=== PATIENT | female | born 1935 | race Caucasian/White ===

== ENCOUNTER 2017-03-13 12:29 | Day surgery (SDC) | payer BC ==
[2017-02-17 13:42] VITALS: BMI 19.0
[~2017-03-13] VITALS: Ht 157.5 cm; Wt 47.7 kg
[~2017-03-13 12:29] MED LIST: ATROPINE SULFATE 0.1 MG/ML 5ML SYR IV PRN; CALC-51 PO; FENTANYL CITRATE INJ 50 MCG/1 ML 2 ML VIAL IV PRN; ONDANSETRON INJ 2 MG/ML 2 ML VIAL IV PRN; PROCAINAMIDE HCL INJ 500 MG/ML 2 ML VIAL IV ONE; PROPOFOL IV EMULSION 10 MG/ML 100 ML VIAL IV ONE; VITA1TAB4 PO
[2017-03-13 12:53] VITALS: BP 161/79; PULSE 83; TEMP 36.6; O2SAT 98; Ht 157.5 cm; Wt 47.7 kg
[2017-03-13 13:11] LABS: HEMATOCRIT 40.6 % (37-47); MEAN CELL VOLUME 94.2 fL (80-100); MEAN CORPUSCULAR HEMOGLOBIN 31.3 pg (25-34); MEAN PLATELET VOLUME 9.5 fL (7.4-10.4); PLATELET COUNT 268 K/uL (130-400); RED BLOOD COUNT 4.31 M/uL (4.2-5.4); WHITE BLOOD COUNT 6.52 K/uL (4.8-10.8)
[2017-03-13] MEDS ORDERED: MIDAZOLAM HCL 1 MG/ML 2ML VIAL ONE (13:33)
[2017-03-13] MEDS ORDERED: PROPOFOL IV EMULSION 10 MG/ML 20 ML VIAL IV ONE (13:33)
[2017-03-13] MEDS ORDERED: LIDOCAINE HCL 2% 2 ML VIAL (20MG/ML) ONE (13:33)
[2017-03-13] MEDS ORDERED: KETAMINE HCL INJ 50 MG/ML 10 ML VIAL ONE (13:33)
[2017-03-13 13:37] LABS: MEAN CORPUSCULAR HGB CONC 33.3 g/dl (32-36)
[2017-03-13] MEDS ORDERED: NURSING VERBAL MED ORDER ONE (13:45)
[2017-03-13] MEDS ORDERED: CIPROFLOXACIN / D5W 400 MG IV SCH (14:00)
--- NOTE | 2017-03-13 14:06 | Progress Note ---
Progress Note Date of Service Mar 13, 2017. Progress Note [facility] [address] [place] [address] Endoscopy History & Physical Patient Name: Christin Ching Unit Number: [id number] Date of : 1935 Patient Status: Registered Surgical Day Care Attending Doctor: Ramakrishna Vizcaino MD History & Physical - GI History & Physical Date of Service: Mar 13, 2017. Chief Complaint: Referring Physician: History of Present Illness Is a 81-year-old female referred from [facility], for an incidental finding of a pancreatic neck cystic lesion measuring 24 x 19 mm in size. No alarm symptoms, no history of pancreatitis.No weight loss Past Surgical History Hx Cardiac Surgery: No Hx Abdominal Surgery: No Hx Post-Op Nausea and Vomiting: No Hx Cancer Surgery: Yes (L ENUCLEATION) Hx Thoracic Surgery: No Hx Orthopedic: No Hx Urinary Tract Surgery: No Social History Smoking Status: Never Smoker Hx Substance Use: No Hx Alcohol Use: Yes (OCC BEER WITH PIZZA) Allergies Coded Allergies: No Known Allergies (Unverified , 03/13/17) Current Medications Reported Home Medications Medications Dose Route/Sig Max Daily Dose Days Date Category [Calcium] 250 Units PO QAM 02/17/17 Reported Vitamin E 400 Unit Tab 400 Units PO QAM 02/17/17 Reported Vital Signs Weight (Kilograms): 47.73 Height (Feet): 5 Height (Inches): 2 Physical Exam General Appearance: WD/WN, no apparent distress Respiratory/Chest: Auscultation: breath sounds normal, CTA except as noted Cardiovascular: Apical Impulse: not displaced Heart Auscultation: RRR, normal S1 Assessment and Plan 81-year-old presenting for pancreatic cystic lesion for an endoscopic ultrasound.
--- NOTE | 2017-03-13 15:10 | GI REPORT ---
Procedure Date: 03/13/2017 2:32 PM Procedure: Upper GI endoscopy Indications: Heartburn Medicines: General Anesthesia Complications: No immediate complications. Estimated blood loss: None. Estimated Blood Loss: Estimated blood loss: none. Procedure: Pre-Anesthesia Assessment: - Pre-Anesthesia Assessment: - Prior to the procedure, a History and Physical was performed, and patient medications, allergies and sensitivities were reviewed. The patient's tolerance of previous anesthesia was reviewed. Please see [employer] for complete details. - The risks and benefits of the procedure and the sedation options and risks were discussed with the patient. All questions were answered and informed consent was obtained. - Patient identification and proposed procedure were verified prior to the procedure by the physician and the nurse. The procedure was verified in the pre-procedure area in the procedure room. After obtaining informed consent, the endoscope was passed carefully and meticuously under direct vision and only advanced when the lumen was clearly identified, C02 insuflation was utilized throughout the entirity of the procedure. Throughout the procedure, the patient's blood pressure, pulse, and oxygen saturations were monitored continuously. After obtaining informed consent, the endoscope was passed under direct vision. Throughout the procedure, the patient's blood pressure, pulse, and oxygen saturations were monitored continuously. The scope was introduced through the mouth, and advanced to the second part of duodenum. The upper GI endoscopy was accomplished without difficulty. The patient tolerated the procedure well. Findings: A hiatus hernia was present. The entire examined stomach was normal. The examined duodenum was normal. Impression: - Hiatus hernia. - Normal stomach. - Normal examined duodenum. - No specimens collected. Recommendation: - Discharge patient to home (with escort). - Perform an upper endoscopic ultrasound (UEUS) today. Ramakrishna Vizcaino MD 03/13/2017 3:10:05 PM This report has been signed electronically. Note Initiated On: 03/13/2017 2:32 PM I attest to the content of the Intraoperative Record and orders documented therein, exceptions below
--- NOTE | 2017-03-13 15:17 | GI REPORT ---
Procedure Date: 03/13/2017 2:41 PM Procedure: Upper EUS Indications: Pancreatic cyst on CT scan Medicines: General Anesthesia, Cipro 400 mg IV x 1 intraprocedure Complications: No immediate complications. Estimated blood loss: None. Estimated Blood Loss: Estimated blood loss: none. Procedure: Pre-Anesthesia Assessment: - Pre-Anesthesia Assessment: - Prior to the procedure, a History and Physical was performed, and patient medications, allergies and sensitivities were reviewed. The patient's tolerance of previous anesthesia was reviewed. Please see [employer] for complete details. - The risks and benefits of the procedure and the sedation options and risks were discussed with the patient. All questions were answered and informed consent was obtained. - Patient identification and proposed procedure were verified prior to the procedure by the physician and the nurse. The procedure was verified in the pre-procedure area in the procedure room. After obtaining informed consent, the endoscope was passed carefully and meticuously under direct vision and only advanced when the lumen was clearly identified, C02 insuflation was utilized throughout the entirity of the procedure. Throughout the procedure, the patient's blood pressure, pulse, and oxygen saturations were monitored continuously. After obtaining informed consent, the endoscope was passed under direct vision. Throughout the procedure, the patient's blood pressure, pulse, and oxygen saturations were monitored continuously. The scope was introduced through the mouth, and advanced to the second part of duodenum. The upper EUS was accomplished without difficulty. The patient tolerated the procedure well. Findings: Endosonographic Finding : An anechoic lesion suggestive of a cyst was identified in the pancreatic neck. It is not in obvious communication with the pancreatic duct. The lesion measured 31 mm by 12 mm in maximal cross-sectional diameter. There was a single compartment thinly septated. The outer wall of the lesion was not seen. There was no associated mass. There was no internal debris within the fluid-filled cavity. Diagnostic needle aspiration for fluid was performed. Color Doppler imaging was utilized prior to needle puncture to confirm a lack of significant vascular structures within the needle path. One pass was made with the 22 gauge needle using a transgastric approach. A stylet was used. The amount of fluid collected was 5 mL. The fluid was clear and viscous. Sample(s) were sent for amylase concentration, cytology and CEA. Endosonographic imaging in the entire pancreas showed no mass, no pancreas divisum, no pancreatic duct changes and no parenchymal abnormalities. There was no sign of significant endosonographic abnormality in the common bile duct. The maximum diameter of the duct was 5 mm. An unremarkable gallbladder was identified. There was no sign of significant endosonographic abnormality in the left lobe of the liver. Impression: - A cystic lesion was seen in the pancreatic neck. Fine needle aspiration for fluid performed. - There was no sign of significant pathology in the common bile duct. - There was no evidence of significant pathology in the left lobe of the liver. Recommendation: - Discharge patient to home (with escort). - Await cytology and fluid analysis - If cyst is mucinous, then repeat MRI in 6-[address] Guillermo or myself. - Cipro (ciprofloxacin) 500 mg PO BID for 3 days. Ramakrishna Vizcaino MD 03/13/2017 3:16:30 PM This report has been signed electronically. Note Initiated On: 03/13/2017 2:41 PM I attest to the content of the Intraoperative Record and orders documented therein, exceptions below
[2017-03-13] MEDS ORDERED: CIPR-255 PO (15:21)
--- NOTE | 2017-03-13 15:22 | Discharge Instructions ---
Endoscopy Patient Instructions Date / Procedure(s) Performed Mar 13, 2017. Other (endoscopic) Allergy Information Coded Allergies: No Known Allergies (Unverified , 03/13/17) Discharge Date / Findings Mar 13, 2017. Pancreatic cyst in the pancreatic genu, no high risk stigmata was identified. Aspiration was performed. Provider Instructions Activity Restrictions - No exercising or heavy lifting for 24 hours. - Do not drink alcohol the day of the procedure. - Do not drive a car or operate machinery until the day after the procedure. - Do not make any important decisions or sign important papers in 24 hours after the procedure. Following Day: - Return to full activity which may include returning to work/school. Diet Start your diet with liquids and light foods (jello, soup, juice, toast). Then eat your usual diet if not nauseated. Treatment For Common After Affects For mild abdominal pain, bloating, or excessive gas: - Rest - Eat lightly - Lie on right side Follow-Up Information Follow-up with as scheduled Anesthesia Information What You Should Know You have had a procedure that required some medicine to reduce anxiety and discomfort. This treatment is called moderate sedation. After receiving the treatment, you may be sleepy, but you will be able to breathe on your own. The effects of the treatment may last for several hours. Follow these instructions along with Activity/Diet recommendations noted above: * Do NOT do anything where dizziness or clumsiness would be dangerous. * Rest quietly at home today, then you can be up and about tomorrow. * Have a responsible person stay with you the rest of today. * You may have had an I.V. today. If so, you may take the dressing off later today. Recommendations Call your doctor if: * Trouble breathing * Continuous vomiting for more than 24 hours * Temperature above 101 degrees * Severe abdominal pain or bloating * Pain not relieved by pain medicine ordered * There is increased drainage or redness from any incision * A large amount of rectal bleeding greater than 2-3 tablespoons. (If you had a polyp/s removed or have hemorrhoids, a small amount of blood - from the rectum is to be expected.) * You have any unanswered questions or concerns. IN THE EVENT OF A SERIOUS EMERGENCY, GO TO THE NEAREST EMERGENCY ROOM Your discharge instructions were prepared by provider Ramakrishna Vizcaino. Patient Instructions Signature Page Christin Jeane Patient (or Guardian) Signature/Date: I have read and understand the instructions given to me by my caregivers. Caregiver/RN/Doctor Signature/Date: The above-named patient and/or guardian has received patient instructions on this date. + Original Patient Signature Page (only) stays with chart. Please make copy for patient.
[2017-03-13 15:38] VITALS: BP 160/71; PULSE 74; TEMP 36.7; O2SAT 97
[2017-03-13 16:10] VITALS: BP 158/62; PULSE 67; TEMP 36.7; O2SAT 99
[2017-03-13 16:40] VITALS: BP 166/76; PULSE 70; TEMP 36.8; O2SAT 97
== END 2017-03-13 16:55 | disposition home or self-care (01) ==
LOC: C.ACU 12:29
PROVIDERS: ATTEND Internal Medicine
DX: K44.9 Diaphragmatic hernia without obstruction or gangrene (principal); K86.89 Other specified diseases of pancreas; Z90.01 Acquired absence of eye; Z85.840 Personal history of malignant neoplasm of eye; Z68.1 Body mass index [BMI] 19.9 or less, adult